=== PATIENT | male | born 1935 | race Caucasian/White ===

== ENCOUNTER 2018-02-09 05:43 | Emergency (ER) | payer MEDICARE, OTHER ==
[~2018-02-09] VITALS: Ht 172.7 cm; Wt 76.7 kg
[~2018-02-09 05:43] MED LIST: AMOX875T20 PO; ASPI81TA82 PO; TRAM50 PO
[2018-02-09 05:47] VITALS: BP 195/89; PULSE 67; RESP 18; TEMP 97.6; O2SAT 95
[2018-02-09] MEDS ORDERED: ASPI-516 CHEW (05:54)
--- NOTE | 2018-02-09 06:11 | PD ---
HPI Chief Complaint: Musculoskeletal Complaint Time Seen by Provider: 06:03 Travel History International Travel<30 days: No Contact w/Intl Traveler<30days: No Traveled to known affect area: No History of Present Illness HPI 82-year-old male presents to the emergency department for complaint of left lower extremity pain. Patient has had associated low back pain with radiating pain to the left lower extremity. Patient has history of sciatica. Patient reports typically his symptoms are right-sided but since morning he has had increasing discomfort to the left lower extremity. Right lower extremity is not affected. Patient denies injury or fall. Patient has not noticed any swelling or redness of the leg denies any coolness or pallor of the leg. Patient denies any chronic medical conditions. Patient has taken no medications for his symptom relief. Patient denies other concerns or complaints. Patient does not report any bladder or bowel dysfunction, saddle anesthesia, or lower extremity numbness tingling or weakness. Patient rates his pain 7/10 in intensity. 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 HEAD: Atraumatic. Normocephalic. EYES: Pupils equal and round. No scleral icterus. No injection or drainage. ENT: No nasal bleeding or discharge. Mucous membranes pink and moist. NECK: Trachea midline. No JVD. CARDIOVASCULAR: Regular rate and rhythm. RESPIRATORY: No accessory muscle use. Clear to auscultation. Breath sounds equal bilaterally. GASTROINTESTINAL: Abdomen soft, non-tender, nondistended. Hepatic and splenic margins not palpable. MUSCULOSKELETAL: Extremities without clubbing, cyanosis, or edema. No obvious deformities. Tenderness to palpation along the lower lumbar spine overlying the SI joint; no flank tenderness; pelvic rock stable; positive left lower extremity straight leg raising reproduces pain to the left anterior thigh. Motor strength is 5/5 in intensity. DTRs are 2+ and equal without clonus. NEUROLOGICAL: Awake and alert. No obvious cranial nerve deficits. Motor grossly within normal limits. Five out of 5 muscle strength in the arms and legs. Normal speech. PSYCHIATRIC: Appropriate mood and affect; insight and judgment normal. Data Data Last Documented VS Vital Signs Date Time Temp Pulse Resp B/P (MAP) Pulse Ox O2 Delivery O2 Flow Rate FiO2 02/09/18 05:56 67 18 02/09/18 05:47 97.6 195/89 (124) 95 Orders Orders Dexamethasone Inj (Decadron Inj) (02/09/18 06:15) Ketorolac Inj (Toradol Inj) (02/09/18 06:15) MDM Medical Decision Making Medical Screen Exam Complete: Yes Emergency Medical Condition: Yes Medical Record Reviewed: Yes (2012 MRI lumbar spine shows tonic changes without significant stenosis or focal disc protrusion) Differential Diagnosis Sciatica, H&P, DJD, DDD, aneurysm, mass; also to consider cauda equina syndrome Narrative Course Patient administered Decadron 8 mg IM and Toradol 30 mg IM; patient's had no trauma or injury. Patient has no numbness or weakness of the lower extremity only complains of low back pain with referred pain; also no bladder or bowel dysfunction no saddle anesthesia and no history or exam findings for cauda equina syndrome. At this time imaging study does not appear indicated. Patient feeling symptomatically improved will be given prescription for Medrol Dosepak and Ultram; patient is encouraged to follow-up with his specialist on Sunday or return to the emergency department for for any acute change in condition Diagnosis Primary Impression: Lumbar disc disease with radiculopathy Referrals: Primary Care Physician 2 days Patient Instructions: General Instructions Additional Instructions: Apply moist heat to low back intermittently for comfort Take medications as prescribed Follow-up with primary care provider call office on Sunday Return to the emergency department for pain weakness numbness or any concerns Med/Other Pt SpecificInfo: Prescription(s) given Scripts Tramadol (Ultram) 50 Mg Tab 50 MG PO Q6H Y for PAIN, #8 TAB 0 Refills Prov: Marcie Belle MD 02/09/18 Methylprednisolone Dosepak (Medrol Dosepak) 4 Mg Dspk 4 MG PO DIRECTED, #1 DSPK 0 Refills Per Pharmacist direction Prov: Marcie Belle MD 02/09/18 Disposition: 01 DISCHARGE HOME Condition: Stable Marcie Belle MD February 09, 2018 06:11
[2018-02-09] MEDS ORDERED: KETOROLAC TROMETHAMINE 60 MG/2 ML (IM) VIAL IM ONE (06:15)
[2018-02-09] MEDS ORDERED: DEXAMETHASONE SOD PHOS 4 MG/ML VIAL IM ONE (06:15)
[2018-02-09] MEDS ORDERED: TRAM50 PO (06:56)
[2018-02-09] MEDS ORDERED: MEDR4PAK PO (06:56)
[2018-02-09 07:05] VITALS: BP 160/82; PULSE 77; RESP 14; O2SAT 94
== END 2018-02-09 07:05 | disposition home or self-care (01) ==
LOC: PHED 05:43
DX: M51.16 Intervertebral disc disorders with radiculopathy, lumbar region (principal); Z85.038 Personal history of other malignant neoplasm of large intestine
CPT/HCPCS: 96372; 99283; J1100; J1885